=== PATIENT | female | born 1980 | race Caucasian/White ===

== ENCOUNTER 2022-04-05 22:55 | Emergency (ER) | payer MEDICAID ==
[~2022-04-05] VITALS: Ht 162.6 cm; Wt 81.8 kg
[2022-04-06] MEDS ORDERED: SODIUM CHLORIDE 0.9% 1,000 ML IV ONE (00:15)
[2022-04-06] MEDS ORDERED: ONDANSETRON HCL 4 MG/2 ML VIAL IVP ONE (00:15)
[2022-04-06] MEDS ORDERED: KETOROLAC TROMETHAMINE 30 MG/ML VIAL IVP ONE (00:15)
[2022-04-06 01:09] VITALS: BP 127/66
== END 2022-04-06 06:02 | disposition home or self-care (01) ==
LOC: EMS 23:08
DX: F11.23 Opioid dependence with withdrawal (principal); F10.239 Alcohol dependence with withdrawal, unspecified; F17.210 Nicotine dependence, cigarettes, uncomplicated
CPT/HCPCS: 99284; 96374; 96361; 96375; J1885; J2405; J7030